=== PATIENT | female | born 2000 | race Caucasian/White ===

== ENCOUNTER 2022-02-12 11:15 | Emergency (ER) | payer BC ==
[~2022-02-12] VITALS: Ht 160 cm; Wt 54.4 kg
--- NOTE | 2022-02-12 11:45 | NUR ---
SENT HERE BY [facility] FURTHER MANAGEMENT OF PELVIC PAIN,ON ZITHROMAX AND GENTAMYCIN FOR GC/CT
[2022-02-12 12:53] LABS: BASOPHILS # (AUTO) 0.1 K/uL (0.0-0.2); BASOPHILS % (AUTO) 0.3 % (0.0-2.0); EOSINOPHILS % (AUTO) 0.2 % (0.0-6.0); HEMATOCRIT 40 % (33-45); HEMOGLOBIN 13.5 g/dL (11.5-14.8); LYMPHOCYTES # (AUTO) 2.1 K/uL (0.8-4.8); LYMPHOCYTES % (AUTO) 7.2 % (20.0-44.0); MEAN CORPUSCULAR HGB CONC 34 g/dl (31.0-36.0); MEAN CORPUSCULAR VOLUME 88 fL (82-100); MONOCYTES % (AUTO) 6.9 % (2.0-12.0); NEUTROPHILS # (AUTO) 24.5 K/uL (1.8-8.9); NEUTROPHILS % (AUTO) 85.4 % (43.0-81.0); PLATELET COUNT (AUTO) 335 K/uL (150-450); RED BLOOD CELL COUNT(AUTO) 4.57 MIL/uL (4.0-5.2); WHITE BLOOD COUNT (AUTO) 28.7 K/uL (4.3-11.0)
[2022-02-12] MEDS ORDERED: HYDROCODONE/APAP 5/325MG TABLET ONE (12:58)
[2022-02-12] MEDS ORDERED: HYDROCODONE/APAP 5/325MG TABLET PO ONE (13:00)
[2022-02-12] MEDS ORDERED: CT SWABBABLE VALVE TRANS SET 1 EA INFUS.SET MC ONE (13:25)
[2022-02-12] MEDS ORDERED: IOHEXOL-300 100 ML VIAL IV ONE (13:25)
[2022-02-12] MEDS ORDERED: IV NS 0.9% 250 ML IV ONE (13:25)
[2022-02-12 13:36] LABS: ALBUMIN 3.8 g/dL (3.4-5.0); BILIRUBIN,DIRECT 0.2 mg/dL (0.0-0.2); BILIRUBIN,TOTAL 0.8 mg/dL (0.2-1.0); CALCIUM, SERUM 9.4 mg/dL (8.5-10.1); CREATININE 0.8 mg/dL (0.6-1.3); POTASSIUM 3.7 mmol/L (3.5-5.1); TOTAL PROTEIN, SERUM 7.6 g/dL (6.4-8.2)
--- NOTE | 2022-02-12 13:39 | NUR ---
BRENNAN ESTABLISHED R CHERISE 20G.
[2022-02-12] MEDS ORDERED: METR500T PO (14:41)
[2022-02-12] MEDS ORDERED: DOXY-326 PO (14:41)
[2022-02-12] MEDS ORDERED: HYDR-4303 PO (14:41)
[2022-02-12 14:59] VITALS: BP 119/71
--- NOTE | 2022-02-12 14:59 | NUR ---
IV removed. Catheter intact and site benign. Pressure and 4x4 applied to site. No bleeding noted.Patient discharged to home in stable condition. Written and verbal after care instructions given. Patient verbalizes understanding of instruction.
== END 2022-02-12 14:59 | disposition home or self-care (01) ==
LOC: ER 11:15
DX: R10.9 Unspecified abdominal pain (principal); R11.0 Nausea; K52.89 Other specified noninfective gastroenteritis and colitis; N73.8 Other specified female pelvic inflammatory diseases; F17.200 Nicotine dependence, unspecified, uncomplicated; Z79.899 Other long term (current) drug therapy
CPT/HCPCS: 36415; 74177; 80048; 80076; 85025; 99285; J7050; Q9967